=== PATIENT | female | born 1960 | race Caucasian/White ===

== ENCOUNTER 2019-06-17 07:18 | Day surgery (SDC) | payer OTHER ==
[~2019-06-17] VITALS: Ht 167.6 cm; Wt 62.7 kg
[2019-06-17] MEDS ORDERED: SODIUM CHLORIDE 0.9% 1,000 ML IV SCH (07:27)
[2019-06-17 07:39] VITALS: BP 143/78
[2019-06-17] MEDS ORDERED: ZOLP-413 PO (07:47)
[2019-06-17] MEDS ORDERED: RALO60TA PO (07:47)
[2019-06-17] MEDS ORDERED: ZOLPIDEM 5MG TABLET PO SCH (21:00)
[2019-06-18] MEDS ORDERED: RALOXIFENE 60 MG TABLET PO SCH (09:00)
== END 2019-06-17 15:23 | disposition home or self-care (01) ==
LOC: CACL 07:18
PROVIDERS: ATTEND Internal Medicine Cardiovascular Disease
DX: I47.1 Supraventricular tachycardia (principal); Z79.899 Other long term (current) drug therapy
CPT/HCPCS: 93613; 93621; 93623; 93653; 99156; 99157; C1730; C1894; C2630